=== PATIENT | female | born 1935 | race Caucasian/White ===

== ENCOUNTER 2020-03-27 07:59 | Emergency (ER) | payer OTHER ==
[~2020-03-27] VITALS: Ht 154.9 cm; Wt 45.8 kg
[2020-03-27 08:02] VITALS: BP 157/79
--- NOTE | 2020-03-27 08:02 | NUR ---
84 yo F biba c/o generalized weakness and headache since last night at 8pm. Pt transferred to bed by EMS. Pt c/o 9/10 throbbing pain radiating to the back left side of neck. Pt denies any changes in vision. Pt also c/o of generalized weakness. 4mg Zofran ODT given on route. Pt does not c/o of any nausea at this time. Pt did not take any medications for pain. Allergies: Acetamiophen Med hx: HTN, Metabolic Encephalopathy, Hypernatremia, SHANNON, Chronic Kidney Disease, and PVC
--- NOTE | 2020-03-27 08:02 | NUR ---
Note undone in EDM - 03/27/20 at 0817 by [email or web address] 84 yo F biba c/o generalized weakness and headache since last night at 8pm. Pt transferred to bed by EMS. Pt c/o 9/10 throbbing pain radiating to the back left side of neck. Pt also c/o of generalized weakness. 4mg Zofran ODT given on route. Pt does not c/o of any nausea at this time. Pt did not take any medications for pain. Allergies: Acetamiophen Med hx: HTN, Metabolic Encephalopathy, Hypernatremia, SHANNON, Chronic Kidney Disease, and PVC
--- NOTE | 2020-03-27 08:17 | NUR ---
Dr. Clark at bedside evaluating pt.
--- NOTE | 2020-03-27 08:52 | NUR ---
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
--- NOTE | 2020-03-27 09:02 | NUR ---
Pt resting in bed and repositioned for comfort.
[2020-03-27 09:05] LABS: BASOPHILS # (AUTO) 0.1 K/uL (0.00-0.22); BASOPHILS % (AUTO) 0.9 % (0.0-2.0); EOSINOPHILS # (AUTO) 0.1 K/uL (0-0.4); EOSINOPHILS % (AUTO) 0.6 % (0.0-4.0); HEMATOCRIT 32.1 % (36-48); HEMOGLOBIN 10.5 g/dL (12.0-16.0); LYMPHOCYTES # (AUTO) 1.6 K/uL (2.5-16.5); LYMPHOCYTES % (AUTO) 11.7 % (20.5-51.1); MEAN CORPUSCULAR HEMOGLOBIN 30 pg (27-31); MEAN CORPUSCULAR HGB CONC 33 g/dL (33-37); MEAN CORPUSCULAR VOLUME 90.6 fL (80-94); MONOCYTES # (AUTO) 1.2 K/uL (0.8-1.0); MONOCYTES % (AUTO) 9.3 % (1.7-9.3); NEUTROPHILS # (AUTO) 10.3 K/uL (1.8-7.7); NEUTROPHILS % (AUTO) 77.5 % (42.2-75.2); PLATELET COUNT (AUTO) 444 K/uL (140-450); RED BLOOD CELL COUNT(AUTO) 3.54 MIL/uL (4.20-5.40); RED CELL DISTRIBUTION WIDTH 14.2 % (11.6-13.7); WHITE BLOOD COUNT (AUTO) 13.3 K/uL (4.8-10.8)
[2020-03-27 09:06] LABS: BILIRUBIN,URINE NEGATIVE (NEGATIVE); BLOOD, URINE TRACE-I (NEGATIVE); COLOR,URINE YELLOW (YELLOW); LEUKOCYTE ESTERASE ,URINE NEGATIVE (NEGATIVE); NITRITE, URINE POSITIVE (NEGATIVE); PH,URINE 5.5 (5.0-9.0); UGLUCOSE NEGATIVE (NEGATIVE)
--- NOTE | 2020-03-27 09:14 | NUR ---
Pt returned from xray and CT via [facility]
[2020-03-27 09:16] LABS: APPEARANCE,URINE SLIGHTLY HAZY (CLEAR); RBC,URINE 0-5 /HPF (0-5); WBC,URINE 0-5 /HPF (0-5)
[2020-03-27 09:29] LABS: PROTHROMBIN TIME 10.9 secs (10.8-13.4)
--- NOTE | 2020-03-27 09:45 | NUR ---
Pt updated on plan of care. Repositioned left leg for comfort.
[2020-03-27] MEDS ORDERED: ONDANSETRON 4 MG/2 ML VIAL IVP ONE (10:05)
[2020-03-27] MEDS ORDERED: MORPHINE SULFATE 2 MG/ML SYR IVP ONE (10:05)
[2020-03-27 10:19] LABS: ALBUMIN 2.7 g/dL (3.4-5.0); ANION GAP 15.4 (8-16); ASPARTATE AMINOTRANSFERASE 15 U/L (15-37); CARBON DIOXIDE 24.2 mmol/L (21-32); CHLORIDE 102 mmol/L (98-107); CREATININE 1.8 mg/dL (0.6-1.3); GLUCOSE 123 mg/dL (74-106); POTASSIUM 3.6 mmol/L (3.5-5.1); SODIUM SERUM 138 mmol/L (136-145); TOTAL BILIRUBIN 0.5 mg/dL (0.0-1.0); UREA NITROGEN, BLOOD 28 mg/dL (7-18)
[2020-03-27] MEDS ORDERED: NACL 0.9% 1,000 ML IV ONE (10:45)
--- NOTE | 2020-03-27 11:00 | NUR ---
Pt reported pain decreased to level 7/10. Vital Signs Stable will continue to monitor.
--- NOTE | 2020-03-27 12:00 | NUR ---
Per Dr. Zamora, pt to finish IV fluids before discharge. Will continue to monitor.
--- NOTE | 2020-03-27 12:30 | NUR ---
Pt calling family, awaiting a ride home prior to discharge.
--- NOTE | 2020-03-27 13:13 | NUR ---
called jed, pts daughter in law in regards to picking pt up. she states to call pts son mckay [phone]
--- NOTE | 2020-03-27 13:15 | NUR ---
jamari pts son mckay [phone], mail box full
--- NOTE | 2020-03-27 13:18 | NUR ---
called mckay from pts phone, states eta is 20 min
[2020-03-27 13:45] VITALS: BP 155/74
--- NOTE | 2020-03-27 13:45 | NUR ---
Patient discharged with v/s stable. Written and verbal after care instructions given and explained. Patient alert, oriented and verbalized understanding of instructions. PT WHEELCHARED TO CAR, SON DRIVING HOME. All questions addressed prior to discharge. ID band removed. Patient advised to follow up with PMD. Rx of HYDROCODONE given. Patient educated on indication of medication including possible reaction and side effects. Opportunity to ask questions provided and answered. PT AND SON GIVEN COPY PF RESULTS INCLUDING SCANS AND LABS ISNTRUCTED TO CONTINUE ANTIBIOTICS PRESCRIPED BY PCP PT SOILED DOES NOT WISH TO CHANGE, SON NOTIFIED NO FURTHER QUESTIONS
== END 2020-03-27 13:45 | disposition home or self-care (01) ==
LOC: MED 07:59
DX: R51 Headache (principal); M50.922 Unspecified cervical disc disorder at C5-C6 level; M50.923 Unspecified cervical disc disorder at C6-C7 level; N28.9 Disorder of kidney and ureter, unspecified; D64.9 Anemia, unspecified; I10 Essential (primary) hypertension; Z90.49 Acquired absence of other specified parts of digestive tract; Z86.718 Personal history of other venous thrombosis and embolism; Z90.710 Acquired absence of both cervix and uterus; Z79.899 Other long term (current) drug therapy
CPT/HCPCS: 36415; 70450; 71045; 72125; 80053; 81001; 84484; 85025; 85610; 85730; 93005; 96361; 96374; 96375; 99291; J2270; J2405; J7030; Q0092